=== PATIENT | male | born 1995 | race Caucasian/White ===

== ENCOUNTER 2019-11-13 14:33 | Emergency (ER) | payer SELFPAY ==
[~2019-11-13] VITALS: Ht 175.3 cm; Wt 72.7 kg
[2019-11-13 14:47] VITALS: BP 115/79; TEMP 98.6
[2019-11-13] MEDS ORDERED: ZOFRAN ODT4 MG PO (15:44)
[2019-11-13 16:16] VITALS: PULSE 71
== END 2019-11-13 16:16 | disposition home or self-care (01) ==
LOC: COL.ER 14:33
DX: S06.0X9A Concussion with loss of consciousness of unspecified duration, initial encounter (principal); S16.1XXA Strain of muscle, fascia and tendon at neck level, initial encounter; S05.12XA Contusion of eyeball and orbital tissues, left eye, initial encounter; S60.221A Contusion of right hand, initial encounter; F17.210 Nicotine dependence, cigarettes, uncomplicated; Y04.2XXA Assault by strike against or bumped into by another person, initial encounter; Y92.009 Unspecified place in unspecified non-institutional (private) residence as the place of occurrence of the external cause

== ENCOUNTER 2020-06-30 19:04 | Emergency (ER) | payer SELFPAY ==
[~2020-06-30] VITALS: Ht 175.3 cm; Wt 70.0 kg
[~2020-06-30 19:04] MED LIST: ZOFRAN ODT4 MG PO
[2020-06-30 19:06] VITALS: TEMP 96.7
[2020-06-30 19:22] LABS: BASO # 0.1 (0.0-0.2); BASO % 0.9 % (0.0-2.0); EOS # 0.3 (0.0-0.7); EOS % 2.5 % (0-4.0); GRAN # 7.9 (1.4-6.5); GRAN % 68.9 % (42.2-75.2); HEMATOCRIT 47.7 % (42.0-52.0); HEMOGLOBIN 17.1 g/dl (13.5-18.0); LYMPH # 2.3 (1.2-3.4); MEAN CELL VOLUME 83 fl (80.0-100.0); MEAN CORPUSCULAR HEMOGLOBIN 30 pg (27.0-31.0); MEAN CORPUSCULAR HGB CONC 36 g/dl (33.0-37.0); MEAN PLATELET VOLUME 10.5 fl (7.4-10.4); MONO # 0.9 (0.1-0.6); MONO % 7.5 % (1.7-9.3); PLATELET COUNT 269 K/mm3 (130-400); RED BLOOD COUNT 5.72 M/mm3 (4.20-5.60); REDCELL DISTRIBUTION WIDTH-CV 12.4 % (11.5-14.5)
[2020-06-30 19:32] LABS: ALBUMIN 4.5 gm/dL (3.5-5.0); CREATININE, serum 0.88 (0.66-1.25); POTASSIUM 3.8 mmol/L (3.4-5.0); TOTAL PROTEIN 7.2 gm/dL (6.4-8.2)
[2020-06-30 19:48] LABS: MUCOUS Present /lpf; PH 5 (5-8); SQUAMOUS EPITHELIAL None Seen /hpf; URINE APPEARANCE Clear; URINE BACTERIA None Seen /hpf; URINE BILIRUBIN Negative (NEGATIVE); URINE BLOOD Negative (NEGATIVE); URINE COLOR Yellow; URINE GLUCOSE Negative (NEGATIVE); URINE KETONE Trace (NEGATIVE); URINE LEUKOCYTE ESTERASE Negative (NEGATIVE); URINE NITRATE Negative (NEGATIVE); URINE PROTEIN(semi-quant) Negative (NEGATIVE); URINE RBC 0-2 /hpf; URINE UROBILINOGEN Negative (NEGATIVE)
[2020-06-30 20:09] LABS: COLLECTION METHOD CLEAN CATCH
[2020-06-30 21:26] VITALS: BP 117/74; PULSE 86
== END 2020-06-30 21:25 | disposition home or self-care (01) ==
LOC: COL.ER 19:04
PROVIDERS: Nurse Practitioner Primary Care
DX: K29.70 Gastritis, unspecified, without bleeding (principal); F17.210 Nicotine dependence, cigarettes, uncomplicated
CPT/HCPCS: J1885; J2270; J2405; J7030; Q9967

== ENCOUNTER 2020-11-20 19:22 | Emergency (ER) | payer SELFPAY | END 2020-11-20 19:36 | disposition left against medical advice (07) | LOC: COL.ER 19:22 | DX: Z00.00 Encounter for general adult medical examination without abnormal findings (principal) ==

== ENCOUNTER 2021-02-12 08:55 | Emergency (ER) | payer SELFPAY ==
[~2021-02-12] VITALS: Ht 175.3 cm; Wt 60.0 kg
[2021-02-12 09:13] VITALS: BP 114/77
[2021-02-12 10:44] LABS: COLLECTION METHOD CLEAN CATCH
[2021-02-12 11:15] LABS: PH 9 (5-8); SQUAMOUS EPITHELIAL None Seen /hpf; URINE APPEARANCE Turbid; URINE BACTERIA None Seen /hpf; URINE BILIRUBIN Negative (NEGATIVE); URINE BLOOD Negative (NEGATIVE); URINE COLOR Yellow; URINE GLUCOSE Negative (NEGATIVE); URINE KETONE Negative (NEGATIVE); URINE LEUKOCYTE ESTERASE Negative (NEGATIVE); URINE NITRATE Negative (NEGATIVE); URINE PROTEIN(semi-quant) Negative (NEGATIVE); URINE RBC None Seen /hpf; URINE UROBILINOGEN Negative (NEGATIVE); URINE WBC None Seen /hpf
[2021-02-12] MEDS ORDERED: MOTRIN 800800 MG/TAB PO (11:35)
[2021-02-12] MEDS ORDERED: CIPRO 500MG TA500 MG PO (11:35)
[2021-02-12 11:43] VITALS: PULSE 70
== END 2021-02-12 11:45 | disposition home or self-care (01) ==
LOC: COL.ER 08:55
PROVIDERS: Personal Emergency Response Attendant
DX: N50.812 Left testicular pain (principal); Z87.891 Personal history of nicotine dependence